=== PATIENT | female | born 1980 | race Caucasian/White ===

== ENCOUNTER 2017-11-11 10:04 | Emergency (ER) | payer OTHER ==
[2017-11-11 12:13] LABS: BASO % 0.3 % (0.0-2.0); HEMOGLOBIN 9.8 g/dL (11.0-16.0); LYMPH # 1.2 K/uL (1.0-4.3); LYMPH % 12.3 % (20.0-40.0); MEAN CELL VOLUME 65.6 fL (81.0-99.0); MEAN CORPUSCULAR HEMOGLOBIN 21.1 pg (27.0-31.0); MEAN CORPUSCULAR HGB CONC 32.2 g/dL (33.0-37.0); MEAN PLATELET VOLUME 9.3 fL (7.2-11.7); MONO # 0.6 K/uL (0.0-0.8); MONO % 6.4 % (0.0-10.0); NEUT # 7.7 K/uL (1.8-7.0); RBC 4.64 Mil/uL (3.80-5.20); RED CELL DISTRIBUTION WIDTH 18.7 % (11.5-14.5); WHITE BLOOD COUNT 9.5 K/uL (4.8-10.8)
[2017-11-11 12:17] LABS: HCG,QUALITATIVE URINE NEGATIVE (NEGATIVE)
[2017-11-11 12:21] LABS: SQUAMOUS EPITHIAL 9 /hpf (0-5); URINE BACTERIA RARE (<OCC); URINE BILIRUBIN NEGATIVE (NEGATIVE); URINE BLOOD 1+ (NEGATIVE); URINE CLARITY Hazy (Clear); URINE COLOR Yellow (YELLOW); URINE GLUCOSE (UA) NORMAL (Normal); URINE LEUKOCYTE ESTERASE 2+ Leu/uL (Negative); URINE PROTEIN 1+ mg/dL (NEGATIVE); URINE UROBILINOGEN NORMAL mg/dL (0.2-1.0)
[2017-11-11 12:28] LABS: ALB/GLOB RATIO 1.3 (1.0-2.1); ALBUMIN 4.5 g/dL (3.5-5.0); ALT/SGPT 46 U/L (9-52); AST/SGOT 25 U/L (14-36); BLOOD UREA NITROGEN 7 mg/dL (7-17); CALCIUM 8.8 mg/dl (8.6-10.4); GFR NON-AFRICAN AMERICAN > 60; LIPASE 37 U/L (23-300)
[2017-11-11] MEDS ORDERED: Potassium Chloride 20 mEq ER Tab PO STA (12:33)
--- NOTE | 2017-11-11 12:34 | C.PDOC ---
History Of Present Illness <Yu Gagnon - Last Filed: 11/11/17 15:05> <Tramaine Arias - Last Filed: 11/11/17 18:24> 37 y/o female presents to ED with c/o abdominal pain for 3 days associated with chills, nausea, lightheadedness and diarrhea. Patient went to clinic today for evaluation of symptoms and was sent to ED for further evaluation. Patient took Advil with no improvement and reports x2 episodes of watery stool today and denies blood in stool, fever, vomiting or any other complaints at this time. (Yu Gagnon) 37 y/o female presents to ED with c/o abdominal pain for 3 days associated with chills, nausea, lightheadedness and diarrhea. Patient went to clinic today for evaluation of symptoms and was sent to ED for further evaluation. Patient took Advil with no improvement and reports x2 episodes of watery stool today and denies blood in stool, fever, vomiting or any other complaints at this time. (Tramaine Arias) History Per: Patient History/Exam Limitations: no limitations Onset/Duration Of Symptoms: Days Current Symptoms Are (Timing): Still Present <Yu Gagnon - Last Filed: 11/11/17 15:05> <Tramaine Arias - Last Filed: 11/11/17 18:24> Time Seen by Provider: 11/11/17 10:54 Chief Complaint (Nursing): Abdominal Pain Past Medical History Reviewed: Historical Data, Nursing Documentation, Vital Signs - Medical History PMH: Migraine Surgical History: No Surg Hx Family History: States: No Known Family Hx - Social History Hx Alcohol Use: No Hx Substance Use: No - Immunization History Hx Tetanus Toxoid Vaccination: No Hx Influenza Vaccination: No Hx Pneumococcal Vaccination: No <Yu Gagnon - Last Filed: 11/11/17 15:05> Vital Signs: Last Vital Signs Temp 99.0 F 11/11/17 15:14 Pulse 78 11/11/17 15:14 Resp 20 11/11/17 15:14 BP 95/66 L 11/11/17 15:14 Pulse Ox 97 11/11/17 15:14 Review Of Systems Constitutional: Positive for: Chills. Negative for: Fever Cardiovascular: Positive for: Light Headedness Gastrointestinal: Positive for: Nausea, Abdominal Pain, Diarrhea. Negative for: Vomiting Genitourinary: Negative for: Dysuria <Yu Gagnon - Last Filed: 11/11/17 15:05> Physical Exam - Physical Exam Appears: Non-toxic, No Acute Distress Skin: Warm, Dry, No Rash Head: Atraumatic, Normacephalic Eye(s): bilateral: Normal Inspection Oral Mucosa: Moist Neck: Normal ROM, Supple Cardiovascular: Rhythm Regular Respiratory: Normal Breath Sounds, No Rales, No Rhonchi, No Wheezing Gastrointestinal/Abdominal: Tenderness (lower quadrants), No Guarding, No Rebound Back: No CVA Tenderness Neurological/Psych: Oriented x3, Normal Speech, Normal Cognition <Yu Gagnon - Last Filed: 11/11/17 15:05> ED Course And Treatment - Laboratory Results Result Diagrams: 11/11/17 12:09 11/11/17 12:09 O2 Sat by Pulse Oximetry: 98 (RA) Pulse Ox Interpretation: Normal - CT Scan/US CT abd/pelvis Other Rad Studies (CT/US): Read By Radiologist, Radiology Report Reviewed CT/US Interpretation: PROCEDURE: CT Abdomen and Pelvis with contrast. HISTORY: Unspecified pain. Negative test (concurrent with this examination). COMPARISON: None. TECHNIQUE: Contrast dose: 100 cc Visipaque 320. Radiation dose: Total exam DLP = 286.52 mGy-cm. This CT exam was performed using one or more of the following dose reduction techniques: Automated exposure control, adjustment of the mA and/or kV according to patient size, and/or use of iterative reconstruction technique. FINDINGS: LOWER THORAX: Unremarkable. LIVER: Unremarkable. No gross lesion or ductal dilatation. GALLBLADDER AND BILE DUCTS: Unremarkable. PANCREAS: Unremarkable. No gross lesion or ductal dilatation. SPLEEN: Unremarkable. ADRENALS: Unremarkable. No mass. KIDNEYS AND URETERS: Unremarkable. No hydronephrosis. No solid mass. VASCULATURE: Unremarkable. No aortic aneurysm. BOWEL: Diffuse thickening of the wall of the colon consistent with colitis. Colon is involved in its entirety. APPENDIX: Normal appendix. PERITONEUM: Trace free fluid identified in the pelvis/cul de sac. No free air. LYMPH NODES: Unremarkable. No enlarged lymph nodes. BLADDER: Unremarkable. REPRODUCTIVE: Anteverted uterus, mildly enlarged without focal abnormality. Multiple partially collapsed adnexal structures likely follicles, ruptured adnexal cysts. BONES: No acute fracture. OTHER FINDINGS: None. IMPRESSION: CT manifestations of diffuse colitis. Additional benign and/or incidental findings described above. Progress Note: CT abd/pelvis, Blood work, UA ordered. Pepcid, zofran and IV fluids administered <Yu Gagnon - Last Filed: 11/11/17 15:05> - Laboratory Results Result Diagrams: 11/11/17 12:09 11/11/17 12:09 <Tramaine Arias - Last Filed: 11/11/17 18:24> Medical Decision Making <Yu Gagnon - Last Filed: 11/11/17 15:05> <Tramaine Arias - Last Filed: 11/11/17 18:24> Medical Decision Making: Patient was seen and evaluated by PA. I have reviewed the chart. (Yu Gagnon) Patient was seen and evaluated by PA. I have reviewed the chart. (Marguerite Arias) Disposition - Disposition Disposition Time: 15:05 <Yu Gagnon - Last Filed: 11/11/17 15:05> - Disposition Disposition Time: 15:05 <Tramaine Arias - Last Filed: 11/11/17 18:24> - Disposition Referrals: [facility] at [facility] [Outside] Alan Eid MD [Staff Provider] - Disposition: HOME/ ROUTINE Condition: STABLE Additional Instructions: Follow up with the clinic in 1-2 days. Start taking iron for your anemia. Return to ER if symptoms persist or worsen. Carson un seguimiento con la clnica en 1-2 bhakta. Comience a jalil sheri para fountain anemia. Regrese a la alok de emergencias si los sntomas persisten o empeoran. Prescriptions: Ciprofloxacin HCl [Cipro] 500 mg PO BID #14 tab Metronidazole [Flagyl] 500 mg PO BID #14 tab Instructions: Viral Gastroenteritis, Adult (DC) Forms: [facility] [employer] (Persian) Print Language: TUNISIAN - Clinical Impression Clinical Impression: Colitis - PA / REIMBURSEMENT REP / Resident Statement /DO has reviewed & agrees with the documentation as recorded. - Scribe Statement The provider has reviewed the documentation as recorded by the Scribe <Yu Gagnon - Last Filed: 11/11/17 15:05> <Tramaine Arias - Last Filed: 11/11/17 18:24> - Scribe Statement Richie Moreau All medical record entries made by the Scribe were at my direction and personally dictated by me. I have reviewed the chart and agree that the record accurately reflects my personal performance of the history, physical exam, medi mindy decision making, and the department course for this patient. I have also personally directed, reviewed, and agree with the discharge instructions and disposition. (Yu Gagnon) Richie Moreau All medical record entries made by the Scribe were at my direction and personally dictated by me. I have reviewed the chart and agree that the record accurately reflects my personal performance of the history, physical exam, medical decision making, and the department course for this patient. I have also personally directed, reviewed, and agree with the discharge instructions and disposition. (Tramaine Arias)
[2017-11-11] MEDS ORDERED: Potassium Chloride 20 mEq ER Tab PO ONE (12:51)
[2017-11-11] MEDS ORDERED: Iodixanol 320 MG/ML 100 ML BOTTLE IV ONE (13:15)
--- NOTE | 2017-11-11 13:52 | CT ---
Date of service: 11/11/2017 PROCEDURE: CT Abdomen and Pelvis with contrast HISTORY: Unspecified pain. Negative test (concurrent with this examination). COMPARISON: None. TECHNIQUE: Contrast dose: 100 cc Visipaque 320 Radiation dose: Total exam DLP = 286.52 mGy-cm. This CT exam was performed using one or more of the following dose reduction techniques: Automated exposure control, adjustment of the mA and/or kV according to patient size, and/or use of iterative reconstruction technique. FINDINGS: LOWER THORAX: Unremarkable. LIVER: Unremarkable. No gross lesion or ductal dilatation. GALLBLADDER AND BILE DUCTS: Unremarkable. PANCREAS: Unremarkable. No gross lesion or ductal dilatation. SPLEEN: Unremarkable. ADRENALS: Unremarkable. No mass. KIDNEYS AND URETERS: Unremarkable. No hydronephrosis. No solid mass. VASCULATURE: Unremarkable. No aortic aneurysm. BOWEL: Diffuse thickening of the wall of the colon consistent with colitis. Colon is involved in its entirety. APPENDIX: Normal appendix. PERITONEUM: Trace free fluid identified in the pelvis/cul de sac. No free air. LYMPH NODES: Unremarkable. No enlarged lymph nodes. BLADDER: Unremarkable. REPRODUCTIVE: Anteverted uterus, mildly enlarged without focal abnormality. Multiple partially collapsed adnexal structures likely follicles, ruptured adnexal cysts. BONES: No acute fracture. OTHER FINDINGS: None. IMPRESSION: CT manifestations of diffuse colitis. Additional benign and/or incidental findings described above.
[2017-11-11 15:15] VITALS: PULSE 78; RESP 20; TEMP 99; O2SAT 97
[2017-11-11 15:17] VITALS: BP 95/66
== END 2017-11-11 15:45 | disposition home or self-care (01) ==
LOC: C.ER 10:04
DX: K52.9 Noninfective gastroenteritis and colitis, unspecified (principal); E87.6 Hypokalemia
CPT/HCPCS: 74177; 80053; 81001; 83690; 84703; 85025; 87086; 96374; 96375; 99284; J1885; J2405; Q9967

== ENCOUNTER 2018-02-21 08:59 | Emergency (ER) | payer OTHER ==
[2018-02-21 09:17] VITALS: O2SAT 100
[2018-02-21] MEDS ORDERED: Sodium Chloride 0.9% 500 ML IV STA (10:17)
[2018-02-21 10:40] LABS: BASO % 0.3 % (0.0-2.0); EOS % 0.3 % (0.0-4.0); LYMPH # 1.4 K/uL (1.0-4.3); LYMPH % 15.7 % (20.0-40.0); MEAN CELL VOLUME 66.9 fL (81.0-99.0); MEAN CORPUSCULAR HEMOGLOBIN 21.4 pg (27.0-31.0); MEAN PLATELET VOLUME 9.3 fL (7.2-11.7); MONO # 0.7 K/uL (0.0-0.8); MONO % 7.2 % (0.0-10.0); NEUT % 76.5 % (50.0-75.0); RBC 4.23 Mil/uL (3.80-5.20); RED CELL DISTRIBUTION WIDTH 18.7 % (11.5-14.5); WHITE BLOOD COUNT 9.2 K/uL (4.8-10.8)
--- NOTE | 2018-02-21 10:49 | C.PDOC ---
History Of Present Illness 37 y/o female, who is 12 weeks , comes in complaining of pelvic pain for the past 4 days. Patient denies nausea, vomiting, urinary symptoms, or vaginal bleeding. Chief Complaint (Nursing): Abdominal Pain History Per: Patient History/Exam Limitations: no limitations Onset/Duration Of Symptoms: Days Current Symptoms Are (Timing): Still Present Past Medical History Reviewed: Historical Data, Nursing Documentation, Vital Signs Vital Signs: Last Vital Signs Temp 98.1 F 02/21/18 09:12 Pulse 73 02/21/18 09:12 Resp 20 02/21/18 09:12 BP 99/64 L 02/21/18 09:12 Pulse Ox 100 02/21/18 09:12 - Medical History PMH: Migraine Family History: States: No Known Family Hx - Social History Hx Alcohol Use: No Hx Substance Use: No - Immunization History Hx Tetanus Toxoid Vaccination: No Hx Influenza Vaccination: No Hx Pneumococcal Vaccination: No Review Of Systems Except As Marked, All Systems Reviewed And Found Negative. Constitutional: Negative for: Fever Gastrointestinal: Negative for: Nausea, Vomiting Genitourinary: Negative for: Vaginal Bleeding, Other (urinary symptoms) Physical Exam - Physical Exam Appears: Non-toxic, No Acute Distress Skin: Warm, Dry Head: Atraumatic, Normacephalic Eye(s): bilateral: Normal Inspection Oral Mucosa: Moist Neck: Supple Chest: Symmetrical Cardiovascular: Rhythm Regular, No Murmur Respiratory: Normal Breath Sounds, No Rales, No Rhonchi, No Wheezing Gastrointestinal/Abdominal: Tenderness (in suprapubic region), No Distention, No Guarding, No Rebound Extremity: Bilateral: Atraumatic, Normal Color And Temperature, Normal ROM Neurological/Psych: Oriented x3, Normal Speech ED Course And Treatment - Laboratory Results Result Diagrams: 02/21/18 10:36 02/21/18 10:36 O2 Sat by Pulse Oximetry: 100 (RA) Pulse Ox Interpretation: Normal - CT Scan/US Obstetric US Other Rad Studies (CT/US): Read By Radiologist, Radiology Report Reviewed CT/US Interpretation: Findings: Uterus measures approximately 16.2 x 8.5 x 9.5 cm. Anteverted. 3.8 x 3.6 x 3.1 cm lower uterine segment fibroid appears subserosal. Cervix length measures approximately 3.7 cm. There is a single intrauterine fetus present. 4 mm yolk sac. The gestational sac measures 4.4 cm and is compatible with a gestational age of 9 weeks 6 days. The crown-rump length measures 2.2 cm and is compatible with a gestational age of 8 weeks 6 days. There is heart motion which measured 161 BPM. The right ovary measures 3.5 x 2.9 x 3.4 cm. 1.8 x 1.7 x 2.1 cm right-sided corpus luteal cyst. The left ovary measures 3.2 x 1.9 x 3.3. Blood flow was demonstrated to both ovaries. Impression: Live single intrauterine with estimated gestational age 9 weeks 6 days by gestational sac calculation and 8 weeks 6 days by crown-rump length calculation. heart rate 161 bpm. Advise an anomaly screen at 16-18 weeks gestational age. 1.8 x 1.7 x 2.1 cm right corpus luteal cyst. 3.8 cm lower uterine segment fibroid appears subserosal. Progress Note: Labs, UA, and pelvis US ordered. Patient was given IV fluids. Patient sts she feels better, no vaginal bleeding. Copies of blodd work and UD were given to the patient and she was instructed to f/u with her OBGYN within 20-3 days. Disposition - Disposition Disposition: HOSPITALIZED Disposition Time: 14:41 Condition: STABLE Additional Instructions: Follow up within 1-2 days Return to ED if feel worse. Instructions: Acute Pelvic Pain (DC) Forms: [facility] (Frisian) Print Language: HUNGARIAN - Clinical Impression Clinical Impression: Pelvic pain affecting - PA / INDUSTRIAL PROPERTY APPRAISER / Resident Statement MD/DO has reviewed & agrees with the documentation as recorded. - Scribe Statement The provider has reviewed the documentation as recorded by the Radhaibcandice Garcia All medical record entries made by the [place] were at my direction and personally dictated by me. I have reviewed the chart and agree that the record accurately reflects my personal performance of the history, physical exam, medical decision making, and the department course for this patient. I have also personally directed, reviewed, and agree with the discharge instructions and disposition.
[2018-02-21 10:52] LABS: SQUAMOUS EPITHIAL 5 /hpf (0-5); URINE BILIRUBIN NEGATIVE (NEGATIVE); URINE BLOOD NEGATIVE (NEGATIVE); URINE CLARITY Clear (Clear); URINE COLOR Yellow (YELLOW); URINE GLUCOSE (UA) NORMAL (Normal); URINE LEUKOCYTE ESTERASE 1+ Leu/uL (Negative); URINE PROTEIN NEGATIVE (NEGATIVE); URINE UROBILINOGEN NORMAL mg/dL (0.2-1.0)
[2018-02-21 10:54] LABS: ALB/GLOB RATIO 1.4 (1.0-2.1); ALBUMIN 4.3 g/dL (3.5-5.0); ALT/SGPT 33 U/L (9-52); AST/SGOT 17 U/L (14-36); BLOOD UREA NITROGEN 7 mg/dL (7-17); CALCIUM 8.5 mg/dl (8.6-10.4); GFR NON-AFRICAN AMERICAN > 60
[2018-02-21] MEDS ORDERED: Sodium Chloride 0.9% 500 ML IV ONE (10:56)
[2018-02-21 10:58] LABS: INR 1.1; PROTHROMBIN TIME 12.4 SECONDS (9.7-12.2)
--- NOTE | 2018-02-21 12:09 | US ---
Date of service: 02/21/2018 Indication: pelvic pain, Comparison: None available Technique: Transabdominal pelvic ultrasound Findings: Uterus measures approximately 16.2 x 8.5 x 9.5 cm. Anteverted. 3.8 x 3.6 x 3.1 cm lower uterine segment fibroid appears subserosal. Cervix length measures approximately 3.7 cm. There is a single intrauterine fetus present. 4 mm yolk sac. The gestational sac measures 4.4 cm and is compatible with a gestational age of 9 weeks 6 days. The crown-rump length measures 2.2 cm and is compatible with a gestational age of 8 weeks 6 days. There is heart motion which measured 161 BPM. The right ovary measures 3.5 x 2.9 x 3.4 cm. 1.8 x 1.7 x 2.1 cm right-sided corpus luteal cyst. The left ovary measures 3.2 x 1.9 x 3.3. Blood flow was demonstrated to both ovaries. Impression: Live single intrauterine with estimated gestational age 9 weeks 6 days by gestational sac calculation and 8 weeks 6 days by crown-rump length calculation. heart rate 161 bpm. Advise an anomaly screen at 16-18 weeks gestational age 1.8 x 1.7 x 2.1 cm right corpus luteal cyst. 3.8 cm lower uterine segment fibroid appears subserosal.
[2018-02-21 14:23] VITALS: BP 116/66; PULSE 72; RESP 18; TEMP 98.3
== END 2018-02-21 14:49 | disposition home or self-care (01) ==
LOC: C.ER 08:59
DX: O26.891 Other specified pregnancy related conditions, first trimester (principal); R10.2 Pelvic and perineal pain; Z3A.09 9 weeks gestation of pregnancy
CPT/HCPCS: 76801; 80053; 81001; 84702; 85025; 85610; 85730; 99284; J7040

== ENCOUNTER 2018-03-10 08:38 | Outpatient (CLI) | payer OTHER | END 2018-03-10 08:39 | disposition home or self-care (01) | LOC: C.LAB 08:38 | DX: Z34.91 Encounter for supervision of normal pregnancy, unspecified, first trimester (principal) ==

== ENCOUNTER 2018-03-16 08:29 | Outpatient (CLI) | payer OTHER | END 2018-03-16 08:30 | disposition home or self-care (01) | LOC: C.USIC 08:30 ==

== ENCOUNTER 2018-06-18 08:33 | Outpatient (CLI) | payer OTHER | END 2018-06-18 08:34 | disposition home or self-care (01) | LOC: C.LAB 08:33 | DX: Z34.92 Encounter for supervision of normal pregnancy, unspecified, second trimester (principal) ==